=== PATIENT | male | born 1955 | race Caucasian/White ===

== ENCOUNTER 2016-10-14 06:25 | Emergency (ER) | payer OTHER ==
[~2016-10-14] VITALS: Ht 172.7 cm; Wt 97.0 kg
[~2016-10-14 06:25] MED LIST: ASPI81CH8 PO; CPRDXOT OT; LISI5TAB3 PO; METO50TA7 OR; NAPR500T2 OR; OMEP20CA9 OR
[2016-10-14 06:29] VITALS: TEMP 36.6; Ht 172.7 cm; Wt 97.0 kg
[2016-10-14] MEDS ORDERED: BUPR-79 PO (06:45)
[2016-10-14] MEDS ORDERED: LOSA50TA6 PO (06:45)
[2016-10-14] MEDS ORDERED: METO-217 PO (06:45)
[2016-10-14] MEDS ORDERED: MULT-1027 PO (06:47)
[2016-10-14] MEDS ORDERED: OMEG10007 PO (06:47)
[2016-10-14] MEDS ORDERED: MAGN250T22 PO (06:47)
[2016-10-14] MEDS ORDERED: ASPI81TA28 PO (06:47)
[2016-10-14] MEDS ORDERED: EZET10TA63 PO (06:48)
[2016-10-14] MEDS ORDERED: TAMS0.4C38 PO (06:48)
[2016-10-14] MEDS ORDERED: METOPROLOL TARTRATE 1 MG/ML VIAL IV STA (06:52)
[2016-10-14] MEDS ORDERED: ASPIRIN 81 MG CHEW PO STA (06:52)
[2016-10-14] MEDS ORDERED: METOPROLOL TARTRATE 1 MG/ML VIAL ONE (07:00)
--- NOTE | 2016-10-14 07:00 | EMERGENCY ROOM VISIT NOTE ---
History Report prepared by Susana: Jess Wang Under the Supervision of: Dr. Rachelle Bennett M.D. First contact with patient: 06:47 Chief Complaint: CARDIAC ASSESSMENT Stated Complaint: HIGH BP,HEART THUMPING Nursing Triage Summary: Pt c/o that a week ago he had a fluttering, funny feeling in his chest. Stated that his HR had dropped into the 40s. Today c/o of fluttering in chest and that his heart feels like it is working really hard. C/o chest tightness throughout , no pain. Pt said he felt his chest a little tight last night, worse when he woke up. C/o BP being high at home 126/99. History of Present Illness The patient is a 61 year old male who presents to the Emergency Room with complaints of episodes of fluttering sensation in the chest beginning one week prior to arrival. The patient states that last week his Metoprolol medication dosage was changed from 50 mg to 25 mg. He did take the 25 mg dosage this morning. The patient also took a baby Aspirin this morning. He is experiencing chest tightness but denies chest pain. He states that when he is feeling the fluttering sensation and chest tightness he experiences fatigue. The patient notes fluctuating blood pressure for the past week. He denies jaw pain, arm pain , swelling to lower extremities, nausea or vomiting. 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 Review of Systems See HPI for pertinent positives & negatives. A total of 10 systems reviewed and were otherwise negative. Past Medical & Surgical Medical Problems: (1) Hypertension Family History Patient reports no known family medical history. Social History Smoking Status: Never Smoker Marital Status: Housing Status: lives with family Current/Historical Medications Scheduled Aspirin (Aspirin Ec), 81 MG PO DAILY Bupropion (Wellbutrin Sr), 150 MG PO DAILY Ezetimibe (Zetia), 10 MG PO DAILY Fish Oil ([place]-3), 2 CAP PO DAILY Losartan Potassium (Cozaar), 50 MG PO DAILY Magnesium Oxide (Magnesium), 125 MG PO BID Metoprolol Succinate (Toprol Xl), 50 MG PO DAILY Metoprolol Tartrate (Lopressor) (Lopressor), 1-2 TAB PO BID Multiple Vitamin (Multi Vitamin), 1 TAB PO DAILY Tamsulosin Hcl (Flomax), 0.4 MG PO DAILY Allergies Coded Allergies: Iodinated Diagnostic Agents (Verified Allergy, Unknown, HIVES, 10/14/16) Simvastatin (Verified Allergy, Unknown, muscle and brain, 10/14/16) Physical Exam Vital Signs Date Time Temp Pulse Resp B/P (MAP) Pulse Ox O2 Delivery O2 Flow Rate FiO2 10/14/16 08:37 74 18 115/90 96 10/14/16 07:55 79 18 142/96 96 Room Air 10/14/16 07:03 87 10/14/16 07:03 91 143/92 10/14/16 06:54 92 10/14/16 06:41 93 10/14/16 06:29 36.6 87 20 148/93 96 Room Air Physical Exam Vital signs reviewed. General: Well-appearing male, in no significant distress. HEENT: No scleral icterus, PERRLA, neck supple. Atraumatic. Cardiovascular: Regular rate and rhythm, no extra sounds. Pulmonary: Clear to auscultation bilaterally, normal work of breathing. Abdomen: Soft, nontender, nondistended, positive bowel sounds. Musculoskeletal: Atraumatic, no peripheral edema. Neurologic: Patient awake alert and oriented x 3, full strength in all 4 extremities. Cranial nerves 2 through 12 grossly intact. Skin: Warm, dry, no rash Medical Decision & Procedures ER Provider Diagnostic Interpretation: X-ray results as stated below per interpretation by me and the radiologist: SINGLE VIEW CHEST CLINICAL HISTORY: Palpitations. FINDINGS: An AP, portable, upright chest radiograph is obtained. No prior studies are available for comparison at the time of dictation. The examination is degraded by portable technique and patient rotation. The heart is top normal for projection. The pulmonary vascular structures noncongested. There is minimal left basilar atelectasis. The lungs and pleural spaces are otherwise clear. No pneumothorax is seen. The bony thorax is grossly intact. IMPRESSION: No acute cardiopulmonary abnormality. Electronically signed by: Stevo Alejo M.D. 10/14/2016 7:10 AM Dictated Date/Time: 10/14/2016 7:09 AM Laboratory Results 10/14/16 06:40 Red Blood Count 4.85, Mean Corpuscular Volume 93.6, Mean Corpuscular Hemoglobin 32.8, Mean Corpuscular Hemoglobin Concent 35.0, Mean Platelet Volume 9.9, Neutrophils (%) (Auto) 62.1, Lymphocytes (%) (Auto) 18.9, Monocytes (%) (Auto) 11.8, Eosinophils (%) (Auto) 6.0, Basophils (%) (Auto) 0.8, Neutrophils # (Auto ) 3.31, Lymphocytes # (Auto) 1.01, Monocytes # (Auto) 0.63, Eosinophils # (Auto ) 0.32, Basophils # (Auto) 0.04 10/14/16 06:40 Test 10/14/16 06:40 10/14/16 07:08 White Blood Count 5.33 K/uL (4.8-10.8) Red Blood Count 4.85 M/uL (4.7-6.1) Hemoglobin 15.9 g/dL (14.0-18.0) Hematocrit 45.4 % (42-52) Mean Corpuscular Volume 93.6 fL (80-100) Mean Corpuscular Hemoglobin 32.8 pg (25-34) Mean Corpuscular Hemoglobin Concent 35.0 g/dl (32-36) Platelet Count 146 K/uL (130-400) Mean Platelet Volume 9.9 fL (7.4-10.4) Neutrophils (%) (Auto) 62.1 % Lymphocytes (%) (Auto) 18.9 % Monocytes (%) (Auto) 11.8 % Eosinophils (%) (Auto) 6.0 % Basophils (%) (Auto) 0.8 % Neutrophils # (Auto) 3.31 K/uL (1.4-6.5) Lymphocytes # (Auto) 1.01 K/uL (1.2-3.4) Monocytes # (Auto) 0.63 K/uL (0.11-0.59) Eosinophils # (Auto) 0.32 K/uL (0-0.5) Basophils # (Auto) 0.04 K/uL (0-0.2) RDW Standard Deviation 44.8 fL (36.4-46.3) RDW Coefficient of Variation 13.0 % (11.5-14.5) Immature Granulocyte % (Auto) 0.4 % Immature Granulocyte # (Auto) 0.02 K/uL (0.00-0.02) Anion Gap 10.0 mmol/L (3-11) Est Creatinine Clear Calc Drug Dose 80.6 ml/min Estimated GFR () 84.1 Estimated GFR (Non- 72.6 BUN/Creatinine Ratio 17.7 (10-20) Calcium Level 8.7 mg/dl (8.5-10.1) Magnesium Level 2.1 mg/dl (1.8-2.4) Total Bilirubin 0.4 mg/dl (0.2-1) Direct Bilirubin 0.1 mg/dl (0-0.2) Aspartate Amino Transf (AST/SGOT) 38 U/L (15-37) Alanine Aminotransferase (ALT/SGPT) 51 U/L (12-78) Alkaline Phosphatase 43 U/L (45-117) Total Creatine Kinase 597 U/L (39-308) Creatine Kinase MB 8.2 ng/ml (0.5-3.6) Creatine Kinase MB Ratio 1.4 (0-3.0) Total Protein 7.2 gm/dl (6.4-8.2) Albumin 3.8 gm/dl (3.4-5.0) Thyroid Stimulating Hormone (TSH) 1.660 uIu/ml (0.300-4.500) Bedside Troponin I < 0.030 ng/ml (0-0.045) Laboratory results per my review. Medications Administered Medications (Trade) Dose Ordered Sig/Sapphire Route Start Time Stop Time Status Last Admin Dose Admin Metoprolol Tartrate (Lopressor Iv) 5 mg NOW STAT IV 10/14/16 06:52 10/14/16 06:56 DC 10/14/16 07:03 5 MG Aspirin (Aspirin Chew) 243 mg NOW STAT PO 10/14/16 06:52 10/14/16 06:56 DC 10/14/16 07:03 243 MG ECG Indication: palpitations Rate (beats per minute): 95 Rhythm: sinus rhythm Findings: PVC (frequent), no acute ischemic change, other (left atrial enlargement, QTC 457) Comparison ECG Date: when compared to May 07, 2008 the PVC are new and QTC has lengthened ED Course 0650: Past medical records reviewed. The patient was evaluated in room A3. A complete history and physical examination was performed. 0652: Aspirin Chew 243 mg PO, Lopressor Iv 5 mg IV. 08: I reevaluated the patient. 821: Upon reevaluation, the patient appeared to have improvement of his symptoms. I discussed findings with him. He verbalized agreement of the treatment plan. He was discharged home. Medical Decision Differential diagnosis: Acute coronary syndrome, pulmonary embolus, aortic dissection, musculoskeletal pain, pneumonia, pleural effusion, pneumothorax, arrhythmia, ectopy Medication Reconciliation: I attest that I have personally reviewed the patient' s current medication list. Blood Pressure Screening: Patient was found to have a slightly elevated blood pressure due to circumstances. I do not believe that the patient requires hypertension monitoring. This patient was evaluated and appeared to be in no significant distress. IV access was obtained and laboratory work was drawn. The patient was placed on the monitoring analyst and found to be in a sinus rhythm with frequent PVCs. Patient's blood pressure was noted to be mildly elevated. On further questioning, the patient began to feel his symptoms last evening before bed. It escalated early this morning. He was recently cut back from 50 mg of metoprolol XL to 25 mg daily. Patient was given 3 baby aspirin as he had already taken 1 prior to arrival. Cardiac enzymes are negative. Pt felt relief after 5 mg IV metoprolol. A Rx was given for metoprolol tartrate 25 mg BID, as he believes his sx are worse in the evening/night. He will f/u with cardiology this week for reevaluation. Pt will return to the ED for worsening of symptoms or any medical concerns. Impression Primary Impression: PVC (premature ventricular contraction) Scribe Attestation The scribe's documentation has been prepared under my direction and personally reviewed by me in its entirety. I confirm that the note above accurately reflects all work, treatment, procedures, and medical decision making performed by me. Departure Information Dispostion Home / Self-Care Prescriptions Metoprolol Tartrate (Lopressor) (Lopressor) 25 Mg Tab 1-2 TAB PO BID for 30 Days, #90 TAB 0 Refills Prov: Rachelle Bennett M.D. 10/14/16 Referrals Neil Humphrey MD (PCP) Forms IMPORTANT VISIT INFORMATION Patient Instructions My [facility], Premature Ventricular Contract About Additional Instructions Diagnosis: PVCs Metoprolol tartrate 25 mg twice daily. If your palpitations persist, you may increase your dose to 50 mg at night. Avoid excessive caffeine or alcohol. Follow-up with Dr. Brand of cardiology this week for reevaluation. Return to the emergency department for worsening of symptoms or any medical concerns.
[2016-10-14 07:02] LABS: BASO % 0.8 %; BASO ABS # 0.04 K/uL (0-0.2); COMPLETE YES; HEMATOCRIT 45.4 % (42-52); IG% 0.4 %; LYMPH % 18.9 %; LYMPH ABS # 1.01 K/uL (1.2-3.4); MEAN CELL VOLUME 93.6 fL (80-100); MEAN CORPUSCULAR HEMOGLOBIN 32.8 pg (25-34); MEAN PLATELET VOLUME 9.9 fL (7.4-10.4); MONO % 11.8 %; NEUT % 62.1 %; PLATELET COUNT 146 K/uL (130-400); RED BLOOD COUNT 4.85 M/uL (4.7-6.1); WHITE BLOOD COUNT 5.33 K/uL (4.8-10.8)
--- NOTE | 2016-10-14 07:11 | DIAGNOSTIC IMAGING REPORT ---
SINGLE VIEW CHEST CLINICAL HISTORY: Palpitations. FINDINGS: An AP, portable, upright chest radiograph is obtained. No prior studies are available for comparison at the time of dictation. The examination is degraded by portable technique and patient rotation. The heart is top normal for projection. The pulmonary vascular structures noncongested. There is minimal left basilar atelectasis. The lungs and pleural spaces are otherwise clear. No pneumothorax is seen. The bony thorax is grossly intact. IMPRESSION: No acute cardiopulmonary abnormality. Electronically signed by: Stevo Alejo M.D. 10/14/2016 7:10 AM Dictated Date/Time: 10/14/2016 7:09 AM
[2016-10-14 07:36] LABS: POTASSIUM 3.8 mmol/L (3.5-5.1)
[2016-10-14 07:43] LABS: BUN/CREATININE RATIO 17.7 (10-20); CALCIUM 8.7 mg/dl (8.5-10.1); CKMB/CK RATIO 1.4 (0-3.0); CREATININE 1.1 mg/dl (0.60-1.40); THYROID STIMULATING HORMONE 1.66 uIu/ml (0.300-4.500)
[2016-10-14 07:45] LABS: MAGNESIUM 2.1 mg/dl (1.8-2.4)
[2016-10-14] MEDS ORDERED: METO25TA56 PO (08:19)
[2016-10-14 08:37] VITALS: BP 115/90; PULSE 74; O2SAT 96
== END 2016-10-14 08:38 | disposition home or self-care (01) ==
LOC: C.EDB 06:26 → C.EDA 08:38
DX: I49.3 Ventricular premature depolarization (principal); I10 Essential (primary) hypertension; Z79.82 Long term (current) use of aspirin